=== PATIENT | female | born 1990 | race Caucasian/White ===

== ENCOUNTER 2017-01-28 18:12 | Emergency (ER) | payer OTHER ==
[~2017-01-28] VITALS: Ht 165.1 cm; Wt 51.7 kg
[~2017-01-28 18:12] MED LIST: BACTRIM DS 8001 TA1 PO; CIPRO XR500 MG PO; DEPO PROVER150 MG/M1 IM; MACROBID100 M1 PO; PYRIDIUM100 MG PO; PYRIDIUM200 MG PO
[2017-01-28] MEDS ORDERED: HYDROCODONE BIT1 T11 PO (18:56)
== END 2017-01-28 19:02 | disposition home or self-care (01) ==
LOC: ED 18:12
DX: S82.891A Other fracture of right lower leg, initial encounter for closed fracture (principal); F17.200 Nicotine dependence, unspecified, uncomplicated; X50.9XXA Other and unspecified overexertion or strenuous movements or postures, initial encounter; Y93.01 Activity, walking, marching and hiking; Y92.89 Other specified places as the place of occurrence of the external cause; Y99.9 Unspecified external cause status

== ENCOUNTER 2017-02-02 17:58 | Emergency (ER) | payer OTHER ==
[~2017-02-02] VITALS: Ht 165.1 cm; Wt 52.2 kg
[~2017-02-02 17:58] MED LIST changes: +HYDROCODONE BIT1 T11 PO
[2017-02-02 20:46] LABS: BASO % 0.4 % (0.0-1.0); EOS # 0.2 10*3/uL (0.0-0.4); HEMATOCRIT 42.4 % (37.0-47.0); HEMOGLOBIN 13.9 g/dl (12.0-16.0); LYMPH # 2.6 10*3/uL (1.3-4.4); LYMPH % 47.5 % (27.0-41.0); MEAN CELL VOLUME 96.1 fl (81.0-99.0); MEAN CORPUSCULAR HGB 31.5 pg (27.0-31.0); MEAN CORPUSCULAR HGB CONC 32.8 g/dl (33.0-37.0); MONO # 0.4 10*3/uL (0.1-1.0); MONO % 7.6 % (3.0-9.0); NEUT # 2.2 10*3/uL (2.3-7.9); NEUT % 41.5 % (47.0-73.0); PLATELET COUNT AUTOMATED 222 10*3/uL (130-400); RED BLOOD COUNT 4.41 10*6/uL (4.10-5.10); RED CELL DISTRI WIDTH 12.2 % (0-14.5); WHITE BLOOD COUNT 5.4 10*3/uL (4.8-10.8)
[2017-02-02 21:00] LABS: INTERNATIONAL NORM RATIO 0.9 (2.0-3.5)
[2017-02-02] MEDS ORDERED: NORCO 5-325 TA1 EACH PO (22:04)
== END 2017-02-02 21:43 | disposition home or self-care (01) ==
LOC: ED 17:58
PROVIDERS: Emergency Medicine Emergency Medical Services
DX: S82.64XA Nondisplaced fracture of lateral malleolus of right fibula, initial encounter for closed fracture (principal); F17.200 Nicotine dependence, unspecified, uncomplicated; X58.XXXA Exposure to other specified factors, initial encounter; Y93.9 Activity, unspecified; Y92.9 Unspecified place or not applicable; Y99.9 Unspecified external cause status

== ENCOUNTER → 2017-02-15 | Outpatient (CLI) | payer OTHER ==
[~2017-02-15] MED LIST changes: +NORCO 5-325 TA1 EACH PO
== END | disposition home or self-care (01) ==
LOC: ORTHO 02:16
DX: S82.891D Other fracture of right lower leg, subsequent encounter for closed fracture with routine healing (principal); S82.64XD Nondisplaced fracture of lateral malleolus of right fibula, subsequent encounter for closed fracture with routine healing; Z91.81 History of falling; X58.XXXD Exposure to other specified factors, subsequent encounter

== ENCOUNTER → 2021-02-04 | Outpatient (CLI) | payer OTHER | END | disposition home or self-care (01) | LOC: US 13:00 | PROVIDERS: ATTEND Nurse Practitioner Women's Health | DX: Z34.82 Encounter for supervision of other normal pregnancy, second trimester (principal); Z3A.22 22 weeks gestation of pregnancy ==